=== PATIENT | male | born 1980 | race African-American/Black ===

== ENCOUNTER 2018-06-05 21:49 | Emergency (ER) | payer OTHER ==
[2018-06-05 22:17] VITALS: RESP 16
--- NOTE | 2018-06-05 22:38 | ED ---
General Adult HPI - General Chief complaint: Recheck/Abnormal Lab/Rx Stated complaint: Need Med refill Source: patient Mode of arrival: ambulatory Limitations: no limitations - History of Present Illness Initial comments: Dictation was produced using [employer] dictation software. please excuse any grammatical, word or spelling errors. Chief Complaint: 37-year-old -Swedish male with past medical history hypertension presents with medication refill. History of Present Illness: Patient is a 37-year-old [place] male presents with medication refill. He is visiting from out of town. He just arrived here today. He lives in another part of the [facility]. He has history of hypertension. He ran out of his medications yesterday. Patient takes Luxiq camp for right knee pain and amlodipine Benzapril combo drug for hypertension. Patient denies any symptoms. No headache, shortness of breath, chest pain, numbness or tingling. The ROS documented in this emergency department record has been reviewed and confirmed by me. Those systems with pertinent positive or negative responses have been documented in the HPI. All other systems are other negative and/or noncontributory. - Related Data Home Medications Medication Instructions Recorded Confirmed Meloxicam 15 mg PO DAILY 06/05/18 06/05/18 amLODIPine BESYLATE/BENAZEPRIL 1 cap PO DAILY 06/05/18 06/05/18 [amLODIPine BESYLATE/BENAZEPRIL 5-10 mg] Previous Rx's Medication Instructions Recorded Meloxicam 15 mg PO DAILY PRN #12 tablet 06/05/18 amLODIPine BESYLATE/BENAZEPRIL 1 cap PO DAILY #30 cap 06/05/18 [amLODIPine BESYLATE/BENAZEPRIL 5-10 mg] Allergies Allergy/AdvReac Type Severity Reaction Status Date / Time No Known Allergies Allergy Verified 06/05/18 22:30 Review of Systems ROS Statement: Those systems with pertinent positive or pertinent negative responses have been documented in the HPI. ROS Other: All systems not noted in ROS Statement are negative. Past Medical History Past Medical History: Hypertension Additional Past Medical History / Comment(s): Arthritis. Diverticulitis History of Any Multi-Drug Resistant Organisms: None Reported Past Surgical History: Bowel Resection Past Psychological History: No Psychological Hx Reported Smoking Status: Never smoker Past Alcohol Use History: None Reported Past Drug Use History: None Reported General Exam - General Exam Comments Initial Comments: PHYSICAL EXAM: General Impression: Alert and oriented x3, not in acute distress HEENT: Normocephalic atraumatic, extra-ocular movements intact, pupils equal and reactive to light bilaterally, mucous membranes moist. Cardiovascular: Heart regular rate and rhythm, S1&S2 audible, no murmurs, rubs or gallops Chest: Lungs clear to auscultation bilaterally, no rhonchi, no wheeze, no rales Abdomen: Bowel sounds present, abdomen soft, non-tender, non-distended, no organomegaly Musculoskeletal: Pulses present and equal in all extremities, no peripheral edema Motor: Power 5/5 bilaterally, no focal deficits noted Neurological: CN II-XII grossly intact, no focal motor or sensory deficits noted Skin: Intact with no visualized rashes Psych: Normal affect and mood Limitations: no limitations Course Vital Signs 06/05/18 22:13 Temperature 98.3 F Pulse Rate 80 Respiratory 16 Rate Blood Pressure 218/129 O2 Sat by Pulse 95 Oximetry Medical Decision Making - Medical Decision Making ED course:-year-old -Swedish male past medical history of hypertension presents with medication refill. He is visiting from out of town presents us for burning of his medications yesterday. Upon arrival shows blood pressure 218 /129, worse vital signs within normal limits. Pressure is improved. Patient is expressing a symptomatically hypertension at this time. No indication for further workup. Patient advised to refill his medications and take them. When he returns home he should follow-up with his primary care physician. He is told to report back to us should he has any worsening blood pressure, chest pain , shortness breath, headache. Patient is in town for work he is told to get his blood pressure checked at the local pharmacy if he has any concerns. Patient given prescription for his blood pressure medication and arthritis medication. Disposition Clinical Impression: Encounter for medication refill Disposition: HOME SELF-CARE Condition: Good Instructions: Hypertension (ED) Prescriptions: amLODIPine BESYLATE/BENAZEPRIL [amLODIPine BESYLATE/BENAZEPRIL 5-10 mg] 1 cap PO DAILY #30 cap Meloxicam 15 mg PO DAILY PRN #12 tablet PRN Reason: Pain Is patient prescribed a controlled substance at d/c from ED?: No Referrals: None,Stated [Primary Care Provider] - 1-2 days Time of Disposition: 22:38
[2018-06-05 23:08] VITALS: BP 184/123; PULSE 73; TEMP 97.9
== END 2018-06-05 23:08 | disposition home or self-care (01) ==
LOC: EC 21:49
DX: Z76.0 Encounter for issue of repeat prescription (principal); I10 Essential (primary) hypertension; M19.90 Unspecified osteoarthritis, unspecified site; Z79.1 Long term (current) use of non-steroidal anti-inflammatories (NSAID); Z79.899 Other long term (current) drug therapy
CPT/HCPCS: 99281